=== PATIENT | male | born 1990 | race Hispanic/Latino ===

== ENCOUNTER 2020-11-23 15:33 | Emergency (ER) | payer OTHER, SELFPAY ==
[2020-11-23 15:34] VITALS: BP 126/80; PULSE 89; RESP 15; TEMP 36.2; O2SAT 94; BMI 27.4
--- NOTE | 2020-11-23 16:33 | EDS_ITS ---
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 He is right-hand dominant. Yesterday he was cutting the leg off the carcass at work when the knife fell. Patient reflexively tried to catch it. He cut his right index finger. Today he has numbness over the tip of the finger is having a hard time moving it. He not take anything for pain prior to arrival. He came in for further evaluation. No other complaints or concerns at this time. Tetanus Immunization: Unknown [facility] Medical History (Updated 11/23/20 @ 18:[address] Elizabeth Garcia, ) No significant past medical history Allergy/AdvReac Type Severity Reaction Status Date / Time No Known Allergies Allergy Verified 11/23/20 15:37 Social History Smoking Status: Never smoker [facility] ED Constitutional Constitutional ED: Reports frequent falls; Denies fever(s) Eyes Eyes: Denies change in vision or eye pain ENT ENT ED: Denies dental pain, mouth lesions or nasal trauma Cardiovascular Cardiovascular: Denies chest pain or syncope Respiratory/Chest Respiratory/Chest: Denies cough or dyspnea Gastrointestinal Gastrointestinal: Denies abdominal pain or nausea Musculoskeletal Musculoskeletal: Denies arthralgias, back pain or myalgias Integumentary Reports Abrasions and other Details: right index finger ; Denies wounds Neurologic Neurologic: Reports paresthesias RUE (right index finger ); Denies headache(s) or weakness Hematologic/Lymphatic Hematologic/Lymphatic: Denies easy bleeding or easy bruising EXAM Physical Exam Const Vital Signs: 11/23/20 15:34 Temperature 97.2 F L Temperature Source Temporal Pulse Rate 89 Respiratory Rate 15 Blood Pressure 126/80 H Blood Pressure Mean 95 Pulse Ox 94 Oxygen Delivery Method Room Air Positive well nourished and well developed General Appearance ED: well developed HEENT Reports head/scalp atraumatic, hearing grossly normal bilaterally and TM's normal bilaterally normocephalic and atraumatic; Negative for Sainz's sign, raccoon eyes or scalp tenderness Nose: no nasal discharge Tympanic Membrane ED: Yes TM's normal bilaterally Tympanic Membrane: TM's normal bilaterally Mouth ED: Yes other Mouth: other Other Details: No Malocclusion Eyes PERRL Neck full ROM Thyroid: Negative for tender Chest Wall inspection of chest normal and palpation of chest normal Chest: Negative for crepitus Resp normal respiratory effort, no retractions and clear to auscultation bilaterally Cardio regular rate and regular rhythm Jugular Venous Distention: Negative for JVD Peripheral Pulses: pulses 2+ throughout GI non-tender and non-distended Palpation: soft; Negative for guarding or rebound tenderness present Back/Spine Cervical Spine: Negative for cervical spine tenderness Lumbar Spine / Lower Back: Negative for lumbar spinal tenderness Extremity normal to inspection Extremity Narrative: Edema with associated decreased range of motion of the right index finger. No bony deformity or tenderness noted. General Extremety ED: Yes edema General Extremity: edema Neuro oriented x3 and moves all extremities Neuro Narrative: Subjective paresthesias to the tip of the right index finger. Sensorium / Orientation: alert Motor Exam: strength 5/5 throughout Psych mental status grossly normal Skin Skin Narrative: 3 cm full-thickness laceration of the pad of the distal right index finger Trauma: Negative for abrasion MDM MDM MDM Narrative Medical decision making narrative: Patient is laceration to his right index finger. Tetanus is updated. He is having trouble bending his finger and numbness of the tip of his finger. I think this is all edema related. X-ray does not show any acute bony injuries. I do not think he lacerated his tendon. Workmen's Compensation paperwork is filed. Patient is counseled that the wound will have to heal by secondary intent. Wound care locally is applied. Patient given Ortho to follow-up with should he have any difficulties in healing. He is counseled he can work as long as he keeps the wound covered and clean. Radiography Diagnostic Testing: Radiology Impression Hand X-Ray 11/23/20 16:55 IMPRESSION: Normal x-ray examination of the hand. Electronically Signed: Ko Duarte MD at 17:41 EDT , Service support , Treatment and Re-Evaluation Comments:: X-ray?no acute process, tetanus updated. Motrin and DC home Discharge Plan Triage Chief Complaint: Laceration ED Provider: Godman,Elizabeth Dx/Rx/DC Orders Clinical Impression: Laceration of right index finger Instructions: ED Laceration, Hand: All Closures, ED Wound Check (No Infection) Primary Care Provider: Care Physician,No Primary Referrals: [facility] [GROUP OF PHYSICIANS] - Jacoby Roper MD [STAFF PHYSICIAN] - Care Physician,No Primary [Primary Care Provider] - Print Language: Bel[place]ian Disposition Disposition: Home, self care
--- NOTE | 2020-11-23 16:55 | RAD_ITS ---
STUDY: X-RAY - RIGHT HAND REASON FOR EXAM: Male, 30 years old. attention distal phalanx of index finger. lacerated distal phalanx yesterday morning while cutting [place] carcass. unable to move or feel anything and difficult to keep it from continuing to bleed. TECHNIQUE: 3 view(s) of the hand. COMPARISON: None. FINDINGS: Normal radiocarpal articulation. Normal distal radioulnar joint. Normal visualized carpal bones. Normal carpal articulations Normal carpometacarpal articulation of the thumb. Normal second through fifth carpometacarpal joints. Normal metacarpi. Normal metacarpophalangeal joint of the thumb. Normal interphalangeal joint of the thumb. Normal proximal and distal phalanges of the thumb. Normal metacarpophalangeal joints of the second through fifth fingers. Normal proximal and distal interphalangeal joints of the second through fifth fingers. Normal phalanges of the second through fifth fingers. No visualized fracture. The soft tissue structures are unremarkable. RAD/Hand Min 3 Views IMPRESSION: Normal x-ray examination of the hand. Electronically Signed: Ko Duarte MD at 17:41 EDT , Service support ,
[2020-11-23] MEDS: Diphth,Pertuss(Acell),Tet Vac 0.5 ML Vial IM (17:02)
[2020-11-23] MEDS: Ibuprofen 600 MG Tablet PO (17:02)
== END 2020-11-23 18:24 | disposition home or self-care (01) ==
PROVIDERS: Emergency Provider Emergency Medicine
DX: S61.210A Laceration without foreign body of right index finger without damage to nail, initial encounter (principal); W26.0XXA Contact with knife, initial encounter; Y93.89 Activity, other specified; Y92.9 Unspecified place or not applicable; Y99.0 Civilian activity done for income or pay
CPT/HCPCS: 90471; 73130; 90715; 99284